=== PATIENT | female | born 1975 | race Caucasian/White ===

== ENCOUNTER 2018-12-08 16:59 | Emergency (ER) | payer OTHER ==
[~2018-12-08] VITALS: Ht 152.4 cm; Wt 82.1 kg
[2018-12-08 17:19] VITALS: Ht 152.4 cm; Wt 82.1 kg
[2018-12-08 19:18] VITALS: BP 147/103
== END 2018-12-08 19:18 | disposition home or self-care (01) ==
LOC: ED 16:59
DX: G89.29 Other chronic pain (principal); M54.5 Low back pain; M54.2 Cervicalgia; R03.0 Elevated blood-pressure reading, without diagnosis of hypertension